=== PATIENT | male | born 1935 | race Caucasian/White ===

== ENCOUNTER 2017-10-29 18:06 | Observation (INO) ==
[2017-10-29] MEDS ORDERED: Aspirin 81 MG TAB.CHEW PO ONE (18:40)
[2017-10-29 18:50] LABS: Basophils % 0.4 %; Eosinophils # 0.3 K/mcL (0.0-0.6); Eosinophils % 2.8 %; Hematocrit 49.8 % (37.5-50.1); Hemoglobin 15.9 g/dL (12.9-16.9); Immature Granulocytes % 0.6 % (0-4); Lymphocytes # 1.1 K/mcL (0.6-4.6); Lymphocytes % 11.7 %; Mean Corpuscular HGB Conc 31.9 g/dL (31.6-35.5); Mean Corpuscular Hemoglobin 28.5 pg (28.0-33.3); Mean Corpuscular Volume 89.4 fL (83.0-100.0); Mean Platelet Volume 10.8 fL (9.4-12.4); Monocytes # 1.4 K/mcL (0.0-1.3); Monocytes % 14.2 %; Neutrophils # 6.9 K/mcL (1.6-8.9); Platelet Count 265 K/mcL (140-400); Red Blood Count 5.57 M/mcL (4.19-5.50); Red Cell Distribution Width 15.4 % (11.5-14.5); Segmented Neutrophils % 70.3 %
[2017-10-29 19:10] LABS: BUN/Creatinine Ratio 20 (6-26); Blood Urea Nitrogen 22 mg/dL (8-23); Calcium 9.3 mg/dL (8.6-10.3); Carbon Dioxide 28 mEq/L (23-29); Chloride 104 mEq/L (98-107); Glucose 80 mg/dL (70-105); Osmolality,Calculated 292 (280-300); Potassium 4.1 mEq/L (3.5-5.1); Sodium 140 mEq/L (136-145); eGFR For African Americans > 60 (> 60); eGFR For Non-African Americans > 60 (> 60)
[2017-10-29 19:11] LABS: Troponin I < 0.03 ng/mL (< 0.04)
--- NOTE | 2017-10-29 19:17 | Emergency Department Note ---
Disposition Clinical Impression: Atypical chest pain Disposition: Still a Patient Condition: Good Referrals: Vaibhav Hood DO [Primary Care Provider] - Time of Disposition: 19:21 Chest Pain HPI - General Chief Complaint: ED Chest Pain Stated Complaint: chest pain into shoulder Time Seen by Provider: 10/29/17 18:44 Source: patient, family Mode of arrival: ambulatory Limitations: no limitations Vital Signs Reviewed: Yes Nursing Notes Reviewed: Yes - History of Present Illness HPI Narrative: Patient presents to the emergency room for evaluation of chest pain. Symptoms are worse when he takes a deep breath in. He has a history of coronary artery bypass multiple years ago. He denies any exertional component to the presentation. He is concerned because when he takes a deep breath and he has significant pain in his chest wall. Patient otherwise denies any other symptoms prior to coming into the emergency department Pt complaint: chest pain Onset (ago): hour(s) Duration: intermittent Onset: during rest Pain Location: left chest Severity: mild Severity scale (1-10): 8 Quality: sharp Pain Radiation: LUE Improves with: rest Worsens with: inspiration Associated symptoms: Denies: nausea, vomiting, diaphoresis, dyspnea, sense of impending doom, syncope Treatments prior to arrival chest pain: none - Related Data Allergies Allergy/AdvReac Type Severity Reaction Status Date / Time No Known Allergies Allergy Verified 10/29/17 18:22 All systems ED: reviewed and negative except as stated. Review of Systems: As Per HPI Constitutional: Denies: fever, chills Cardiovascular: Reports: chest pain. Denies: palpitations, dyspnea on exertion , orthopnea Respiratory: Denies: cough, dyspnea, wheezes, hemoptysis Gastrointestinal: Denies: abdominal pain, nausea, vomiting, diarrhea Genitourinary: Denies: dysuria Musculoskeletal: Denies: back pain, neck pain Neurological: Denies: headache Endocrine: Denies: fatigue Chest Pain PMH - Past Medical History Medical history: Reports: hyperlipidemia, hypertension Psychiatric history: Reports: no psych history - Social History Smoking Status: Former smoker Alcohol use: Reports: rarely Drug use: Reports: none Physical Exam - General Limitations: no limitations General appearance: alert, in no apparent distress - ENT ENT exam: normal exam, normal oropharynx, mucous membranes moist - Neck Neck exam: Present: normal inspection, full ROM, trachea midline - Chest Chest inspection: Present: normal inspection, symmetric chest wall rise - Respiratory Respiratory exam: Present: normal lung sounds bilaterally - Cardiovascular Cardiovascular exam: Present: regular rate, normal rhythm, normal heart sounds - Extremities Exam Extremities exam: Present: normal inspection, full ROM, normal capillary refill. Absent: tenderness, pedal edema - Back Exam Back exam: Present: normal inspection, full ROM. Absent: tenderness - Neurological Exam Neurological exam: Present: alert, oriented X3, CN II-XII intact, normal gait - Skin Skin exam: Present: warm, dry, intact, normal color Course Course Narrative: Patient seen and examined at the time of arrival. See history of present illness. 82-year-old male presents with history of coronary artery disease and CABG for evaluation of substernal left-sided chest pain. Symptoms are only present when he takes a deep inspiration in. Complains of sharp stabbing pain to the chest wall. Patient denies any recent trauma or illnesses. Denies any fevers or chills cough, congestion headache or vision change. Vital signs on initial triage are stable. Patient does not have any symptoms at this time except for with deep inspiration. Physical exam is unremarkable lungs are clear heart is regular he has no signs of rash lesion trauma or injury to the chest wall. He has no reproducible symptoms on exam. Abdomen is soft nontender nondistended patient has no pitting edema other symptoms. Patient will have medical screening evaluation a chest x-ray EKG and labs. Initial EKG collected here in the emergency room shows stable sinus rhythm with first- degree heart block. Patient has right bundle branch that appears to be chronic. Ventricular rate is 72. [place] interval of approximately 200. QRS duration of 174. QTC of 387. No acute signs of ST segment elevation antibiotics - Reevaluation(s) Reevaluation #1: Patient will be signed out to the nighttime physician Dr. Palacio Time: 19:21 Vital Signs Temperature 97.5 F L 10/29/17 18:13 Pulse Rate 75 10/29/17 18:13 Respiratory Rate 18 10/29/17 18:13 Blood Pressure 168/94 10/29/17 18:13 O2 Sat by Pulse Oximetry 97 10/29/17 18:13 Temperature 97.5 F L 10/29/17 18:13 Pulse Rate 75 10/29/17 18:13 Respiratory Rate 18 10/29/17 18:13 Blood Pressure 168/94 10/29/17 18:13 O2 Sat by Pulse Oximetry 97 10/29/17 18:13 Oxygen Delivery Oxygen Delivery Room Air Chest Pain - MDM Narrative Medical decision making narrative: Chest pain, inspiratory discomfort - Medical Records Medical records reviewed: Yes I reviewed the patient's medical records. - Lab Data Lab results reviewed: Yes I reviewed the patient's lab results. Result diagrams: 10/29/17 18:22 10/29/17 18:22 Lab Results 10/29/17 10/29/17 Range/Units 18:22 18:22 WBC 9.8 (4.3-11.1) K/mcL RBC 5.57 H (4.19-5.50) M/mcL Hgb 15.9 (12.9-16.9) g/dL Hct 49.8 (37.5-50.1) % MCV 89.4 (83.0-100.0) fL MCH 28.5 (28.0-33.3) pg MCHC 31.9 (31.6-35.5) g/dL RDW 15.4 H (11.5-14.5) % Plt Count 265 (140-400) K/mcL MPV 10.8 (9.4-12.4) fL Immature Gran % 0.6 (0-4) % Seg Neutrophils % 70.3 % Lymphocytes % 11.7 % Monocytes % 14.2 % Eosinophils % 2.8 % Basophils % 0.4 % Neutrophils # 6.9 (1.6-8.9) K/mcL Lymphocytes # 1.1 (0.6-4.6) K/mcL Monocytes # 1.4 H (0.0-1.3) K/mcL Eosinophils # 0.3 (0.0-0.6) K/mcL Basophils # 0.0 (0.0-0.2) K/mcL Sodium 140 (136-145) mEq/L Potassium 4.1 (3.5-5.1) mEq/L Chloride 104 (98-107) mEq/L Carbon Dioxide 28 (23-29) mEq/L BUN 22 (8-23) mg/dL Creatinine 1.12 (0.70-1.30) mg/dL Est GFR ( Amer) > 60 (> 60) Est GFR (Non-Af Amer) > 60 (> 60) BUN/Creatinine Ratio 20 (6-26) Glucose 80 (70-105) mg/dL Calculated Osmolality 292 (280-300) Calcium 9.3 (8.6-10.3) mg/dL Troponin I < 0.03 (< 0.04) ng/mL - Radiology Data Radiology results reviewed: Yes I reviewed the patient's radiology results. - EKG Data EKG attestation: Yes I reviewed and interpreted this EKG. EKG results narrative: Sinus rhythm with stable right bundle branch block. Ventricular rate is 72. IL interval 200. QRS duration of 174. QTC of 387. No acute signs of ST segment elevation or abnormality. Intervals are within normal limits. [place] is normal. No acute signs of WPW or [place]. Compared to EKG on 05/16/07. No acute morphology changes Heart Score - Score History: Slightly Suspicious EKG: Non Specific repolarisation Disturbance Age: Greater than 65 Risk Factors: 1-2 risk factors Troponin: Less than normal limit HEART Score Total: 4 S.Chu.Celena - Nico Background: Presenting Complaint, Relevant PMH, Meds, & Allergies Assessment: Vital Signs, Course and respsone to treatment, Exam Concerns Recommendation: Barrier(s) to disposition, Recommendation based on pending studies, treatments, or consults SMonica Report Given to: Dr. Pia Walsh Repor Time: 19:22
[2017-10-29] MEDS ORDERED: Nitroglycerin 0.4 MG TAB.SUBL SL ONE (20:27)
[2017-10-29] MEDS: Nitroglycerin 0.4 MG TAB.SUBL SL PRN ×2 (20:28→20:40)
--- NOTE | 2017-10-29 20:35 | Emergency Department Note ---
Disposition Clinical Impression: Chest pain Qualifiers: Chest pain type: unspecified Qualified Code(s): R07.9 - Chest pain, unspecified Disposition: Admitted As Inpatient Condition: Fair Time of Disposition: 20:34 Chest Pain HPI - General Chief Complaint: ED Chest Pain Stated Complaint: chest pain into shoulder Time Seen by Provider: 10/29/17 18:44 Source: patient, family Mode of arrival: ambulatory Limitations: no limitations - History of Present Illness Pain Location: left chest Severity scale (1-10): 8 Quality: sharp Improves with: rest Worsens with: inspiration Associated symptoms: Denies: nausea, vomiting, diaphoresis, dyspnea, sense of impending doom, syncope - Related Data Allergies Allergy/AdvReac Type Severity Reaction Status Date / Time No Known Allergies Allergy Verified 10/29/17 18:22 Constitutional: Denies: fever, chills Cardiovascular: Reports: chest pain. Denies: palpitations, dyspnea on exertion , orthopnea Respiratory: Denies: cough, dyspnea, wheezes, hemoptysis Gastrointestinal: Denies: abdominal pain, nausea, vomiting, diarrhea Genitourinary: Denies: dysuria Musculoskeletal: Denies: back pain, neck pain Neurological: Denies: headache Endocrine: Denies: fatigue Chest Pain PMH - Past Medical History Medical history: Reports: hyperlipidemia, hypertension Psychiatric history: Reports: no psych history - Social History Smoking Status: Former smoker Alcohol use: Reports: rarely Drug use: Reports: none Physical Exam - General Limitations: no limitations General appearance: alert, in no apparent distress Course Course Narrative: Briefly care was signed out from Dr. Spann see his documentation patient is having chest pain has a history of a quadruple bypass his pain briefly resolved but has since come back [place] repeat EKG that shows no new ischemic changes patient's in discomfort and often chest pain will get a nitroglycerin trial plan is for admission even though troponin negative EKG with no changes he has a heart score of 6 and a strong history with active chest pain. - Reevaluation(s) Reevaluation #1: Patient with negative troponin negative repeat EKG for acute ischemia patient improve after nitroglycerin trial will be admitted to Dr. Orr hospitalist for chest pain workup. Hemogram is stable at the time of disposition receive 3 sublingual nitroglycerin in the emergency department Time: 21:10 Vital Signs Temperature 97.5 F L 10/29/17 18:13 Pulse Rate 75 10/29/17 18:13 Respiratory Rate 18 10/29/17 18:13 Blood Pressure 168/94 10/29/17 18:13 O2 Sat by Pulse Oximetry 97 10/29/17 18:13 Temperature 97.5 F L 10/29/17 18:13 Pulse Rate 69 10/29/17 20:41 Respiratory Rate 16 10/29/17 21:08 Blood Pressure 124/74 10/29/17 21:08 O2 Sat by Pulse Oximetry 98 10/29/17 19:36 Oxygen Delivery Oxygen Delivery Room Air Chest Pain - Differential Diagnosis Likely: pneumothorax, stable angina, atypical chest pain, chest pain - Medical Records Medical records reviewed: Yes I reviewed the patient's medical records. - Lab Data Lab results reviewed: Yes I reviewed the patient's lab results. Result diagrams: 10/29/17 18:22 10/29/17 18:22 Lab Results 10/29/17 10/29/17 Range/Units 18:22 18:22 WBC 9.8 (4.3-11.1) K/mcL RBC 5.57 H (4.19-5.50) M/mcL Hgb 15.9 (12.9-16.9) g/dL Hct 49.8 (37.5-50.1) % MCV 89.4 (83.0-100.0) fL MCH 28.5 (28.0-33.3) pg MCHC 31.9 (31.6-35.5) g/dL RDW 15.4 H (11.5-14.5) % Plt Count 265 (140-400) K/mcL MPV 10.8 (9.4-12.4) fL Immature Gran % 0.6 (0-4) % Seg Neutrophils % 70.3 % Lymphocytes % 11.7 % Monocytes % 14.2 % Eosinophils % 2.8 % Basophils % 0.4 % Neutrophils # 6.9 (1.6-8.9) K/mcL Lymphocytes # 1.1 (0.6-4.6) K/mcL Monocytes # 1.4 H (0.0-1.3) K/mcL Eosinophils # 0.3 (0.0-0.6) K/mcL Basophils # 0.0 (0.0-0.2) K/mcL Sodium 140 (136-145) mEq/L Potassium 4.1 (3.5-5.1) mEq/L Chloride 104 (98-107) mEq/L Carbon Dioxide 28 (23-29) mEq/L BUN 22 (8-23) mg/dL Creatinine 1.12 (0.70-1.30) mg/dL Est GFR ( Amer) > 60 (> 60) Est GFR (Non-Af Amer) > 60 (> 60) BUN/Creatinine Ratio 20 (6-26) Glucose 80 (70-105) mg/dL Calculated Osmolality 292 (280-300) Calcium 9.3 (8.6-10.3) mg/dL Troponin I < 0.03 (< 0.04) ng/mL - Radiology Data Radiology results reviewed: Yes I reviewed the patient's radiology results. Chest X-Ray 10/29/17 18:40 IMPRESSION: 1. Mild bibasilar atelectasis and small right pleural effusion. 2. Mildly enlarged cardiac silhouette. D/ / Aquiles Wilkinson MD / Aquiles Wilkinson MD Interpreting Provider: Aquiles Wilkinson MD - EKG Data EKG attestation: Yes I reviewed and interpreted this EKG. EKG shows normal: sinus rhythm Rate: normal [place]/QRS: RBBB (64 bpm [place] 271 QRS 152 QTC 397 right bundle branch blockacute ischemic changes unchanged from previous EKG earlier today) Heart Score - Score History: Moderately Suspicious EKG: Non Specific repolarisation Disturbance Age: Greater than 65 Risk Factors: Equal/Greater than 3 risk factor or history of atherosclerotic disease Troponin: Less than normal limit HEART Score Total: 6 Attestation Statement - Attestation Attestation: I, David Palacio MD, personally evaluated this patient and discussed their management with the resident physician. I reviewed the resident's note and agree with the documented findings, medical decision making, and plan of care. This patient was signed out at shift change from Dr. Spann. Please refer to his note for complete details of the history and physical examination. Patient is a 82-year-old male with a prior history of four-vessel bypass who presented complaining of some left-sided chest pain and pain in the left scapular region. He describes the pain as sharp like a knife stabbing in his back. The pain is worse with breathing. No radiation of the pain. Some shortness of breath. At shift change patient is awaiting test results and final disposition. On exam patient is well-developed well-nourished well-appearing elderly male in no acute distress. He is alert and oriented 3. There is no cyanosis or diaphoresis. Chest is nontender to palpation. Breath sounds equal bilaterally. Heart regular rate and rhythm. Labs reviewed and unremarkable. Troponin normal. EKG showed normal sinus rhythm with first-degree AV block with a ventricular rate is 64. Right bundle branch block. No acute ST segment changes when compared to prior EKG. Chest x- ray shows mild bibasilar atelectasis and small right pleural effusion. Mildly enlarged cardiac silhouette. Patient took aspirin 325 mg at home prior to coming to the emergency department. After he had been here in the department for a while he complained of worsening of the chest pain. A repeat EKG was obtained and was unchanged. He was given sublingual nitroglycerin. The hospitalist, Dr. Orr, was consulted and accepted admission of the patient.
[2017-10-29] MEDS ORDERED: *HR* OxyCODONE Immed Rel 5 MG TABLET PO PRN (23:35)
[2017-10-29] MEDS ORDERED: Naloxone 0.4 MG/ML INJ IVP PRN (23:35)
[2017-10-29] MEDS ORDERED: Acetaminophen 325 MG TABLET PO PRN (23:35)
[2017-10-29] MEDS ORDERED: *HR* HYDROcodone/Acet 5/325 mg TABLET PO PRN (23:35)
[2017-10-29] MEDS ORDERED: Nitroglycerin 0.4 MG TAB.SUBL SL PRN (23:42)
--- NOTE | 2017-10-29 23:44 | Internal Med History&Physical ---
Date of Encounter: 10/29/17 Time of Encounter: 23:43 Assessment and Plan (1) Chest pain Current visit: Yes Status: Acute 82/male History of hypertension and hyperlipidemia. Admitted with persistent sharp left-sided chest pain. First set of troponin negative. Chest x-ray: No acute process. EKG: Nonspecific ST-T changes. Assessment: Chest pain to rule out ACS. Plan: Admit as observation. Aspirin/metoprolol/Lipitor. Echocardiogram. Cycle troponin. We need patient's home medication list. If the troponins are negative/echocardiogram normal: Please consider the stress test. I examined this patient in3 B 12 Patient's family( brother and sister in law) at bedside. Plan of care explained to them. Family verbalize understanding. Qualifiers: Chest pain type: unspecified Qualified Code(s): R07.9 - Chest pain, unspecified (2) Hypertension Current visit: Yes Status: Acute Patient is known to have hypertension. Patient is presently on metoprolol. Blood pressure is within acceptable range. we will resume metoprolol tonight. Qualifiers: Hypertension type: essential hypertension Qualified Code(s): I10 - Essential (primary) hypertension (3) Dyslipidemia Current visit: Yes Status: Acute Patient is known to have a dyslipidemia. Tomorrow morning we will get the lipid panel. We will start Lipitor 20 mg tonight. Family to bring medicine and we need a medication reconciliation of the home dosages P (4) DVT prophylaxis Current visit: Yes Status: Acute SCD. Medical decision making: This patient has a moderate to severe risk of worsening in spite of being on appropriate medication due to the underlying complex medical conditions. Internal Medicine - H&P: HPI Chief complaint: chest pain Admitted From: Emergency Dept Plans for Post Hospital Care: Home History of present illness: Mr. Bowman is a 82 year old male whose primary care provider is Dr. Hood. Patient has a background history of hypertension, hypercholesterolemia. Patient started complaining of chest pains since this morning. Essentially patient was telling that after he got out of the chair she started feeling sharp pains in his left-sided precordial area. These sharp pains are at a frequent interval and was giving very uncomfortable feeling to the patient. Patient was not able to comfortably sitting down for his lunch. This is the reason patient decided to come to the emergency room for further evaluation. Patient does have a occasional dizziness. Patient denies shortness of breath, nausea, vomiting, abdominal pain, constipation and diarrhea. Patient was evaluated in the emergency room. Basic labs were drawn. The other than monocytosis there was no abnormality in the CBC and chemistry panel was within normal limits including troponin. His EKG showed nonspecific ST-T changes. Reason for admission chest pain to rule out ACS. Past Med Surg Social Fam HX - Past Medical History Medical history: hyperlipidemia, hypertension Psychiatric history: no psych history - Past Surgical History Surgical History: cholecystectomy - Social History Smoking Status: Former smoker Smokeless Tobacco Status: No Alcohol use: rarely Drug use: none - Family History Sister Hx Family Cardiac Disorders: Yes Hx Family Neurologic Disorders: Yes (parkinsons) Internal Medicine - H&P: Meds 3 Allergy/AdvReac Type Severity Reaction Status Date / Time No Known Allergies Allergy Verified 10/29/17 18:22 All Systems PM: A 10-system review of systems was performed and is negative for pertinent findings except as documented above in the HPI. - Constitutional Constitutional: no chills, no fever(s), no night sweats - EENT Eyes: no change in vision, no discharge, no pain, no photophobia Ears: no ear discharge, no ear pain, no tinnitus Nose, mouth and throat: no dysphagia, no nasal discharge, no neck pain, no sore throat - Cardiovascular Cardiovascular ROS IM: chest pain, diaphoresis, dyspnea, edema, lightheadedness , no palpitations, no syncope - Respiratory Respiratory: no cough, no dyspnea, no wheezing, no excessive phlegm production - Gastrointestinal Gastrointestinal: no abdominal pain, no diarrhea, no hematemesis, no hematochezia, no melena, no nausea, no vomiting - Musculoskeletal Musculoskeletal ROS IM: no numbness, no tingling - Integumentary Integumentary IM: no rash, no unusual bruising - Neurological Neurological ROS: no confusion, no convulsions, no focal weakness, no numbness, no tingling, no tremor(s) - Hematologic/Lymphatic Hematologic/Lymphatic: no easy bruising - Constitutional Vitals: Temp Pulse Resp BP Pulse Ox 97.8 F 62 17 135/68 95 10/29/17 22:49 10/29/17 22:49 10/29/17 22:49 10/29/17 22:49 10/29/17 22:49 General appearance: Present: A&O X 3, pleasant, no acute distress, answers questions appropriately - Head Head exam: Present: atraumatic, normocephalic - Eye Eye exam: Present: PERRL, conjuntiva pink, sclera anicteric Pupils: Present: PERRL - Neck Neck exam general surgery: Present: supple, trachea midline. Absent: lymphadenopathy - Respiratory Respiratory exam: Present: CTAB. Absent: accessory muscle use, rales, rhonchi, wheezes - Cardiovascular Cardiovascular exam: Present: RRR, +S1, +S2. Absent: diastolic murmur, gallop, rubs, systolic murmur - GI/Abdominal GI/Abdominal exam: Present: normal bowel sounds, soft, no peritoneal signs. Absent: distended, tenderness - Extremities Exam Extremities exam: Present: warm, radial pulses palpable and symmetrical. Absent : calf tenderness, cyanotic, pedal edema - Neurological Exam Neurological exam: Present: CN II-XII intact, oriented X3, no focal deficits. Absent: pronater drift, facial droop, speech deficit - Skin Skin exam: Present: dry, intact Internal Med - H&P Results - Labs CBC & Chem 7: 10/29/17 18:22 10/29/17 18:22
[2017-10-30 00:47] LABS: Basophils % 0.5 %; Eosinophils # 0.2 K/mcL (0.0-0.6); Eosinophils % 3.1 %; Hematocrit 44.4 % (37.5-50.1); Hemoglobin 14.3 g/dL (12.9-16.9); Immature Granulocytes % 0.5 % (0-4); Lymphocytes # 1.4 K/mcL (0.6-4.6); Lymphocytes % 17.5 %; Mean Corpuscular HGB Conc 32.2 g/dL (31.6-35.5); Mean Corpuscular Hemoglobin 28.4 pg (28.0-33.3); Mean Corpuscular Volume 88.3 fL (83.0-100.0); Mean Platelet Volume 10.9 fL (9.4-12.4); Monocytes % 13.4 %; Platelet Count 236 K/mcL (140-400); Red Blood Count 5.03 M/mcL (4.19-5.50); Red Cell Distribution Width 15.3 % (11.5-14.5)
[2017-10-30 00:52] LABS: INR 1.2; Prothrombin Time 12.5 Seconds (9.4-12.1)
[2017-10-30 00:54] LABS: Activated Partial Thrombo Time 28.2 Seconds (26.0-36.0)
[2017-10-30 01:09] LABS: Alanine Aminotransferase 16 Units/L (7-52); Albumin 3.6 g/dL (3.5-5.7); Albumin/Globulin Ratio 1.4 (1.1-2.2); Alkaline Phosphatase 85 Units/L (34-104); Aspartate Amino Transferase 19 Units/L (13-39); BUN/Creatinine Ratio 23 (6-26); Bilirubin,Total 0.5 mg/dL (0.3-1.0); Blood Urea Nitrogen 21 mg/dL (8-23); Calcium 9.1 mg/dL (8.6-10.3); Carbon Dioxide 26 mEq/L (23-29); Chloride 106 mEq/L (98-107); Chol/HDL Ratio 2.8 (0-4.9); Cholesterol 95 mg/dL (< 200); Globulin 2.6 g/dL (2.4-3.5); Glucose 112 mg/dL (70-105); HDL Cholesterol 34 mg/dL (40-59); LDL Cholesterol,Calculated 47 mg/dL (0-99); Osmolality,Calculated 292 (280-300); Phosphorous 2.2 mg/dL (2.7-4.5); Potassium 3.8 mEq/L (3.5-5.1); Sodium 139 mEq/L (136-145); Total Protein 6.2 g/dL (6.4-8.9); Triglycerides 70 mg/dL (< 150); eGFR For African Americans > 60 (> 60); eGFR For Non-African Americans > 60 (> 60)
[2017-10-30] MEDS ORDERED: Aspirin Enteric Coated 81 MG Tablet PO SCH (09:00)
[2017-10-30 11:40] VITALS: BP 112/72
[2017-10-30] MEDS ORDERED: Regadenoson 0.4 MG/5 ML SYRINGE IVP ONE (13:08)
--- NOTE | 2017-10-30 15:27 | Discharge Summary ---
- NOTES TO OUTPATIENT PROVIDER Notes to Outpatient Provider: stress test completed and negative for ischemia, instructed to treat shoulder pain as muscular skeletal with udro-goy-uegkwgf agents, warm compresses or ice as needed Orders not resulted at time of discharge: Pending orders 10/30/17 10:42 NM linsey perf SPECT multi [NM] Routine Date of Encounter: 10/30/17 Time of Encounter: 15:25 - Discharge Diagnosis (1) Chest pain Priority: Primary Status: Acute Comments: 82-year-old male with a history of hypertension and hyperlipidemia admitted with left-sided chest pain going into his shoulder. Troponins were negative. Chest x-ray was no acute processes. EKG with nonspecific ST-T changes. Continue aspirin metipranolol and Lipitor. Echocardiogram was completed stress test was completed as well. Impression of the stress test pharmacological stress ECG is nondiagnostic for ischemia due to baseline ST-T changes. Gated EF equals 79%. Perfusion imaging was negative for ischemia or infarct. Discussed with cardiology and they stated this was a normal stress test for this patient Discussed with the patient just is likely musculoskeletal in origin. He was not convinced. Qualifiers: Chest pain type: unspecified Qualified Code(s): R07.9 - Chest pain, unspecified (2) Dyslipidemia Priority: Primary Status: Acute Comments: Lipid panel is reviewed triglycerides 70 cholesterol 95 LDL 47 HDL 34. Continue home lipid agent (3) Hypertension Priority: Primary Status: Acute Comments: Pressure is stable continue home medications Qualifiers: Hypertension type: essential hypertension Qualified Code(s): I10 - Essential (primary) hypertension Hospital course: Mr. Bowman is a 82 year old male admitted with chest pain radiating to his shoulder. Troponins are negative, stress test negative for ischemia or infarct. Likely musculoskeletal in nature discussed her pubic agents to help with the discomfort. Discussed with his son as well. Discharge will follow-up with his primary care physician Discharge discussed with: patient, family, nurse - Time Spent with Patient Total time spent providing and/or coordinating discharge services: Less than 30 minutes - Discharge Medications Home Medications: Aspirin [Lo-Dose Aspirin EC] 81 mg PO DAILY 10/30/17 [History] Atorvastatin [Lipitor] 10 mg PO DAILY 10/30/17 [History] Metoprolol Tartrate 50 mg PO BID 10/30/17 [History] Mirabegron [Myrbetriq] 50 mg PO DAILY 10/30/17 [History] Multivit-Min/FA/Lycopen/Lutein [A Thru Z [employer] Men 50+ Tablet] 1 tab PO DAILY 10/30/17 [History] Allergies/Adverse Reactions: 3 Allergy/AdvReac Type Severity Reaction Status Date / Time No Known Allergies Allergy Verified 10/29/17 18:22 Date of admission: 10/29/17 20:49 Primary care physician: Vaibhav Hood Discharging clinician: Luzma Ashby Anticipated date of discharge: 10/30/17 - Constitutional Vitals: Temp Pulse Resp BP Pulse Ox 97.9 F 76 16 112/72 95 10/30/17 11:39 10/30/17 11:39 10/30/17 11:39 10/30/17 11:39 10/30/17 11:39 General appearance: Present: A&O X 3, pleasant, no acute distress, answers questions appropriately - Head Head exam: Present: atraumatic, normocephalic - Eye Eye exam: Present: PERRL, conjuntiva pink, sclera anicteric Pupils: Present: PERRL - Neck Neck exam general surgery: Present: supple, trachea midline. Absent: lymphadenopathy - Respiratory Respiratory exam: Present: CTAB. Absent: accessory muscle use, rales, rhonchi, wheezes - Cardiovascular Cardiovascular exam: Present: RRR, +S1, +S2. Absent: diastolic murmur, gallop, rubs, systolic murmur - GI/Abdominal GI/Abdominal exam: Present: normal bowel sounds, soft, no peritoneal signs. Absent: distended, tenderness - Extremities Exam Extremities exam: Present: warm, radial pulses palpable and symmetrical. Absent : calf tenderness, cyanotic, pedal edema - Neurological Exam Neurological exam: Present: CN II-XII intact, oriented X3, no focal deficits. Absent: pronater drift, facial droop, speech deficit - Skin Skin exam: Present: dry, intact, normal color, warm - Patient Status Disposition: Home, Self-Care Condition: Fair Functional capacity at discharge: independent ambulation Overall status at discharge: patient is back to baseline - Discharge Instructions Instructions: Chest Pain (DC), Chronic Hypertension (DC) Follow Up With: Vaibhav Hood DO [Primary Care Provider] - 03/12/18 10:30 am - Diet and Activity Activity: increase activity as tolerated, resume usual activities as tolerated Diet: advance to your usual diet
--- NOTE | 2017-10-31 18:04 | Electrocardiograph Report ---
[place] [address] Test Date: 2017-10-29 Pat Name: Raghav Bowman Department: 103 Room: 3B12 Gender: M Manager State: [place] : 1935 Requested By: Rupesh Michel Order Number: [id number] Reading MD: Roxy Maher Measurements Intervals [place] Rate: 64 P: 13 SD: 271 QRS: -11 QRSD: 152 T: -6 QT: 388 QTc: 397 Interpretive Statements SINUS RHYTHM WITH FIRST DEGREE AV BLOCK WITH OCCASIONAL SUPRAVENTRICULAR PREMATURE COMPLEXES RIGHT BUNDLE BRANCH BLOCK MINIMAL VOLTAGE CRITERIA FOR LVH, CONSIDER NORMAL VARIANT Electronically Signed On 10-31-2017 18:02:58 EST by Roxy Maher
--- NOTE | 2017-10-31 18:12 | Electrocardiograph Report ---
[address] [place], [place] [address] Test Date: 2017-10-29 Pat Name: Raghav Bowman Department: 103 Room: 3B12 Gender: M Master [address] Security: AM : 1935 Requested By: David Palacio Order Number: [id number] Reading MD: Roxy Maher Measurements Intervals [place] Rate: 72 P: 32 CT: 300 QRS: -14 QRSD: 174 T: -12 QT: 362 QTc: 387 Interpretive Statements SINUS RHYTHM WITH FIRST DEGREE AV BLOCK POSSIBLE LEFT ATRIAL ENLARGEMENT [-0.1mV P WAVE IN V1/V2] RIGHT BUNDLE BRANCH BLOCK [120+ ms QRS DURATION, UPRIGHT V1, 40+ ms S IN I/aVL/V4/V5/V6] POSSIBLE LEFT VENTRICULAR HYPERTROPHY [VOLTAGE CRITERIA PLUS LAE OR QRS WIDENING] ST DEPRESSION, CONSIDER SUBENDOCARDIAL INJURY [0.1+ mV ST DEPRESSION] Electronically Signed On 10-31-2017 18:10:29 EST by Roxy Maher
== END 2017-10-30 16:01 | disposition home or self-care (01) ==
LOC: 3BNU 18:06 → EMEROO 18:06 → SUATTDRO 20:49 → 3BNU 21:21
PROVIDERS: ADMIT Internal Medicine; ATTEND Nurse Practitioner Family